=== PATIENT | female | born 1970 | race Hispanic/Latino ===

== ENCOUNTER 2017-07-18 10:30 | Inpatient (IN) | payer OTHER ==
[~2017-07-18] VITALS: Ht 160 cm; Wt 72.0 kg
[2017-07-18 10:45] VITALS: BP 114/75
[2017-07-18 10:46] LABS: BASOPHILS % (AUTO) 0.4 % (0.0-5.0); EOSINOPHILS % (AUTO) 1.7 % (0.0-8.0); HEMATOCRIT 41.8 % (36-48); LYMPHOCYTES % (AUTO) 30.6 % (21.0-51.0); MEAN CORPUSCULAR HEMOGLOBIN 30.1 pg (27.0-33.0); MEAN CORPUSCULAR HGB CONC 34.1 g/dL (32.0-36.0); MEAN CORPUSCULAR VOLUME 88.3 fL (79-99); MONOCYTES % (AUTO) 6.3 % (3.0-13.0); PLATELET COUNT (AUTO) 297 K/uL (130-400); RED BLOOD CELL COUNT(AUTO) 4.74 MIL/uL (4.00-5.50); RED CELL DISTRIBUTION WIDTH 13.5 % (11.0-15.5); WHITE BLOOD COUNT (AUTO) 6.3 K/uL (4.8-10.8)
[2017-07-18] MEDS ORDERED: SENN-136 PO (11:17)
[2017-07-18] MEDS ORDERED: CYCL10TA7 PO (11:17)
[2017-07-18] MEDS ORDERED: ONDA8TAB5 PO (11:17)
[2017-07-18] MEDS ORDERED: KETO10TA2 PO (11:17)
[2017-07-18] MEDS ORDERED: TRAM50TA4 PO (11:17)
[2017-07-18] MEDS ORDERED: DICL100T5 PO (11:17)
[2017-07-18 11:31] LABS: INR 0.95 (0.85-1.15); PARTIAL THROMBOPLASTIN TIME 29.9 SEC (26.3-35.5)
[2017-07-21] VITALS (20 sets, daily range): BP systolic 101–172; BP diastolic 58–88
[2017-07-21] MEDS: CEFAZOLIN SODIUM 1 GM VIAL IVP SCH ×2 (06:00→08:00)
[2017-07-21] MEDS ORDERED: LACTATED RINGERS 1000ML 1,000 ML IV ONE (06:13)
[2017-07-21] MEDS ORDERED: GLYCOPYRROLATE 0.2 MG/ML 5 ML VIAL ONE (06:27)
[2017-07-21] MEDS ORDERED: LIDOCAINE PF 2% 5ML ABBOJECT ONE (06:27)
[2017-07-21] MEDS ORDERED: DEXAMETHASONE SOD PHOSPHATE 10MG/ML 1ML VIAL ONE ×2 (06:27→10:34)
[2017-07-21] MEDS ORDERED: PROPOFOL 10 MG/ML 20ML VIAL IV ONE (06:29)
[2017-07-21] MEDS ORDERED: FENTANYL CITRATE PF 50 MCG/1 ML 2ML VIAL ONE ×2 (06:29→08:32)
[2017-07-21] MEDS ORDERED: MIDAZOLAM HCL 1 MG/ML 2ML VIAL ONE (06:29)
[2017-07-21] MEDS ORDERED: BUPIVACAINE/PF 0.25% 30ML VIAL IJ ONE (08:09)
[2017-07-21] MEDS ORDERED: DURAMORPH PF1 MG/ML 10ML AMP IV ONE (08:09)
[2017-07-21] MEDS ORDERED: OCTYL 2-CYANOACRYLATE 1 EACH TP ONE (08:09)
[2017-07-21] MEDS ORDERED: THROMBIN-JMI 20000 UNIT KIT TP ONE (08:10)
[2017-07-21] MEDS ORDERED: BACITRACIN 50,000 UNIT VIAL ONE (08:10)
[2017-07-21] MEDS ORDERED: TOBRAMYCIN SULFATE 40MG/1ML VIAL ONE (08:52)
[2017-07-21] MEDS ORDERED: VANCOMYCIN HCL 1 GM VIAL ONE (08:52)
[2017-07-21] MEDS ORDERED: FENTANYL CITRATE PF 50 MCG/1 ML 5ML AMP IV ONE (10:13)
[2017-07-21] MEDS ORDERED: ROCURONIUM BROMIDE 10MG/1ML 5ML VL ONE (10:33)
[2017-07-21] MEDS ORDERED: ONDANSETRON HCL MDV 20ML 2 MG/ML VIAL ONE (10:34)
[2017-07-21] MEDS ORDERED: SUCCINYLCHOLINE CHLORIDE 20 MG/ML 10 ML VIAL ONE ×2 (10:34)
[2017-07-21] MEDS ORDERED: PHENYLEPHRINE HCL 10 MG/ML 1ML VIAL IV ONE ×2 (10:34→10:35)
[2017-07-21] MEDS ORDERED: METOCLOPRAMIDE 10 MG/2 ML VIAL ONE (10:34)
[2017-07-21] MEDS ORDERED: LIDOCAINE HCL 4% LTA SOL 4 ML VIAL ONE (10:35)
[2017-07-21] MEDS ORDERED: NEOSTIGMINE METHYLSULFATE 1MG/ML IV ONE (10:35)
[2017-07-21] MEDS ORDERED: MEPERIDINE-PF 25 MG/ML SYG ONE ×2 (11:10→11:26)
[2017-07-21] MEDS: LACTATED RINGERS 1000ML 1,000 ML IV SCH (13:44)
[2017-07-21] MEDS: TRAMADOL HCL 50 MG TABLET PO SCH ×2 (16:45→23:22)
[2017-07-21] MEDS ORDERED: ONDANSETRON ODT 4 MG TAB PO PRN (16:45)
[2017-07-21] MEDS: ONDANSETRON 4 MG TABLET PO PRN ×2 (17:49→23:27)
[2017-07-21] MEDS: KETOROLAC TROMETHAMINE 15MG/ML IV PRN (17:55)
[2017-07-21] MEDS: KETOROLAC TROMETHAMINE 10 MG TABLET PO SCH (19:29)
[2017-07-21] MEDS: CYCLOBENZAPRINE HCL 10 MG TABLET PO SCH (19:34)
[2017-07-21] MEDS: LACTULOSE 20 GM/30 ML UDCUP PO SCH (19:34)
[2017-07-21] MEDS: SENNOSIDES PO SCH (19:38)
[2017-07-21] MEDS: DOCUSATE SODIUM PO SCH (19:38)
[2017-07-21] MEDS: MORPHINE SULFATE 4 MG/1ML SYG IVP PRN (23:23)
[2017-07-22 00:34] VITALS: BP 116/71
[2017-07-22] MEDS: LACTATED RINGERS 1000ML 1,000 ML IV SCH ×2 (00:55→15:10)
[2017-07-22 04:28] VITALS: BP 112/70
[2017-07-22] MEDS: TRAMADOL HCL 50 MG TABLET PO SCH ×4 (04:55→23:25)
[2017-07-22 07:38] VITALS: BP 105/57
[2017-07-22] MEDS: SENNOSIDES PO SCH ×2 (09:00→19:32)
[2017-07-22] MEDS: LACTULOSE 20 GM/30 ML UDCUP PO SCH ×2 (09:00→19:33)
[2017-07-22] MEDS: DICLOFENAC SODIUM 100 MG PO SCH (09:00)
[2017-07-22] MEDS: DOCUSATE SODIUM PO SCH ×2 (09:00→19:32)
[2017-07-22] MEDS: CYCLOBENZAPRINE HCL 10 MG TABLET PO SCH ×2 (09:00→19:33)
[2017-07-22] MEDS: KETOROLAC TROMETHAMINE 10 MG TABLET PO SCH ×2 (09:00→19:33)
[2017-07-22 10:51] VITALS: BP 106/63
[2017-07-22] MEDS ORDERED: ONDANSETRON HCL MDV 20ML 2 MG/ML VIAL ONE (11:00)
[2017-07-22] MEDS: MORPHINE SULFATE 4 MG/1ML SYG IVP PRN (11:03)
[2017-07-22 16:32] VITALS: BP 110/65
[2017-07-22] MEDS: KETOROLAC TROMETHAMINE 15MG/ML IV PRN (17:21)
[2017-07-22 19:00] VITALS: BP 106/69
[2017-07-23 00:15] VITALS: BP 93/52
[2017-07-23] MEDS: MORPHINE SULFATE 4 MG/1ML SYG IVP PRN ×2 (01:34→22:19)
[2017-07-23] MEDS: LACTATED RINGERS 1000ML 1,000 ML IV SCH ×3 (04:30→19:51)
[2017-07-23 04:45] VITALS: BP 113/59
[2017-07-23] MEDS: TRAMADOL HCL 50 MG TABLET PO SCH ×4 (05:19→22:19)
[2017-07-23 07:41] VITALS: BP 115/63
[2017-07-23] MEDS: CYCLOBENZAPRINE HCL 10 MG TABLET PO SCH ×2 (07:46→19:50)
[2017-07-23] MEDS: LACTULOSE 20 GM/30 ML UDCUP PO SCH ×2 (07:47→19:50)
[2017-07-23] MEDS: DICLOFENAC SODIUM 100 MG PO SCH (07:54)
[2017-07-23] MEDS: DOCUSATE SODIUM PO SCH ×2 (07:54→19:51)
[2017-07-23] MEDS: SENNOSIDES PO SCH ×2 (07:54→19:51)
[2017-07-23] MEDS: KETOROLAC TROMETHAMINE 10 MG TABLET PO SCH ×2 (08:49→19:50)
[2017-07-23 11:19] VITALS: BP 111/56
[2017-07-23 16:15] VITALS: BP 116/56
[2017-07-23 20:00] VITALS: BP 106/63
[2017-07-23] MEDS: ONDANSETRON 4 MG TABLET PO PRN (22:24)
[2017-07-24] VITALS: BP 110/59
[2017-07-24 04:00] VITALS: BP 105/63
[2017-07-24] MEDS: TRAMADOL HCL 50 MG TABLET PO SCH ×3 (04:24→17:13)
[2017-07-24] MEDS: KETOROLAC TROMETHAMINE 15MG/ML IV PRN ×2 (04:33→18:00)
[2017-07-24 07:52] VITALS: BP 103/61
[2017-07-24] MEDS: DOCUSATE SODIUM PO SCH (08:50)
[2017-07-24] MEDS: KETOROLAC TROMETHAMINE 10 MG TABLET PO SCH (08:50)
[2017-07-24] MEDS: SENNOSIDES PO SCH (08:50)
[2017-07-24] MEDS: DICLOFENAC SODIUM 100 MG PO SCH (08:50)
[2017-07-24] MEDS: LACTULOSE 20 GM/30 ML UDCUP PO SCH (08:50)
[2017-07-24] MEDS: CYCLOBENZAPRINE HCL 10 MG TABLET PO SCH (08:50)
[2017-07-24 11:28] VITALS: BP 113/70
[2017-07-24 16:12] VITALS: BP 125/81
== END 2017-07-24 18:46 | DRG 460 ==
LOC: EDSTATUS 10:30 → DAHIP 07-21 05:35 → 4AH 07-21 11:40
PROVIDERS: ADMIT Neuromusculoskeletal Medicine & OMM; ATTEND Neuromusculoskeletal Medicine & OMM
PROC: 4A11X4G Monitoring of Peripheral Nervous Electrical Activity, Intraoperative, External Approach (ICD-10-PCS; 2017-07-21)
PROC: 0SB20ZZ Excision of Lumbar Vertebral Disc, Open Approach (ICD-10-PCS; principal; 2017-07-21 08:03)
PROC: 0SG00AJ Fusion of Lumbar Vertebral Joint with Interbody Fusion Device, Posterior Approach, Anterior Column, Open Approach (ICD-10-PCS; 2017-07-21 08:03)
PROC: 0SG30AJ Fusion of Lumbosacral Joint with Interbody Fusion Device, Posterior Approach, Anterior Column, Open Approach (ICD-10-PCS; 2017-07-21 08:03)
DX: M43.16 Spondylolisthesis, lumbar region (principal); E03.9 Hypothyroidism, unspecified; M48.061 Spinal stenosis, lumbar region without neurogenic claudication; M43.17 Spondylolisthesis, lumbosacral region; M51.26 Other intervertebral disc displacement, lumbar region
CPT/HCPCS: 36415; 72020; 84703; 85025; 85610; 85730; 97039; A4218; J0330; J0690; J1030; J1100; J1885; J2001; J2175; J2250; J2270; J2274; J2370; J2704; J2710; J2765; J3010; J3260; J3370; J3490; J7030; J7120; Q0162